=== PATIENT | female | born 1955 | race Caucasian/White ===

== ENCOUNTER 2021-03-13 09:59 | Inpatient (IN) | payer BC, MEDICARE ==
[~2021-03-13] VITALS: Ht 312.4 cm; Wt 96.8 kg
[2021-03-13] MEDS ORDERED: iohexol 350MG/ML 100ml bottle IV ONE (10:11)
--- NOTE | 2021-03-13 10:40 | NUR ---
Patient states she has a history of occular migraines.
[2021-03-13 10:50] LABS: BASOPHILS % (AUTO) 0.5 % (0-1); EOSINOPHILS % (AUTO) 0.2 % (0-6); HEMATOCRIT 34.9 % (35.0-45.0); HEMOGLOBIN 11.9 g/dl (12.0-16.0); LYMPHOCYTES # (AUTO) 0.5 X10'3 (1.1-4.8); LYMPHOCYTES % (AUTO) 4.6 % (21-51); MEAN CORPUSCULAR HEMOGLOBIN 30.8 PG (27.0-31.0); MEAN CORPUSCULAR VOLUME 90.6 FL (78-98); MEAN PLATELET VOLUME 6.6 FL (7.4-10.4); MONOCYTES # (AUTO) 0.8 X10'3 (0-0.9); NEUTROPHILS % (AUTO) 86.7 % (42-75); PLATELET COUNT 201 X10'3 (140-440); RED BLOOD COUNT 3.85 X10'6 (4.20-5.60); RED CELL DISTRIBUTION WIDTH 14.7 % (11.5-14.5); WHITE BLOOD COUNT 10.4 X10'3 (4.5-11.0)
[2021-03-13 10:59] LABS: APTT 24 SECONDS (22-32)
[2021-03-13 11:04] LABS: ALANINE AMINOTRANSFERASE 22 U/L (12-78); ALBUMIN/GLOBULIN RATIO 0.9 (1.1-1.5); ALKALINE PHOSPHATASE 59 IU/L (46-116); ANION GAP 12 (8-16); ASPARTATE AMINO TRANSFERASE 18 U/L (10-37); BILIRUBIN,TOTAL 0.4 MG/DL (0.1-1.0); BLOOD UREA NITROGEN 12 MG/DL (7-18); BUN/CREATININE RATIO 16.7 (6.6-38.0); CALCIUM 8.9 MG/DL (8.5-10.1); CHLORIDE 99 MMOL/L (99-107); CREATININE 0.72 MG/DL (0.40-0.90); GLUCOSE 125 MG/DL (70-104); POTASSIUM 3.1 MMOL/L (3.5-5.1); SODIUM 138 MMOL/L (135-145); TOTAL CARBON DIOXIDE 27.3 MMOL/L (24-32); TOTAL PROTEIN 6.5 G/DL (6.4-8.2); eGFR 81 ML/MIN
[2021-03-13] MEDS ORDERED: aspirin 325mg tablet PO ONE (11:30)
[2021-03-13 12:21] LABS: PHOSPHORUS 3.5 MG/DL (2.3-4.5)
--- NOTE | 2021-03-13 16:00 | NUR ---
Patient assisted to bedside commode.
[2021-03-13] MEDS ORDERED: FERR325T7 PO (16:01)
[2021-03-13] MEDS ORDERED: LOSA100T57 PO (16:01)
[2021-03-13] MEDS ORDERED: ROSU20TA31 PO (16:01)
[2021-03-13] MEDS ORDERED: CHLO25TA10 PO (16:02)
[2021-03-13] MEDS ORDERED: CHOL100046 PO (16:02)
[2021-03-13] MEDS ORDERED: UBID30CA11 PO (16:02)
[2021-03-13] MEDS ORDERED: ASCO500C17 PO (16:02)
[2021-03-13] MEDS ORDERED: ASPI-611 PO (16:02)
[2021-03-13] MEDS: normal saline 1000ml 1,000 ML IV SCH (16:50)
[2021-03-13] MEDS ORDERED: ondansetron/PF 4mg/2ml inj IV PRN (16:50)
[2021-03-13] MEDS ORDERED: acetaminophen 325mg tablet PO PRN ×2 (16:50)
[2021-03-13] MEDS ORDERED: magnesium 2GM in 50ml NS 50 ML IV PRN (16:50)
[2021-03-13] MEDS ORDERED: magnesium 4gm in 100ml NS 100 ML IV PRN (16:50)
[2021-03-13] MEDS ORDERED: nitroGLYCERIN 0.4mg SUBLingual tab SL PRN (16:50)
[2021-03-13] MEDS ORDERED: mag hydrox/Alum hydrox/simeth 30ml oral suspension PO PRN (16:50)
[2021-03-13] MEDS ORDERED: metoprolol tartrate 1mg/ml inj IV PRN (16:50)
[2021-03-13] MEDS ORDERED: potassium Cl 20 mEq SR tablet PO PRN (16:50)
[2021-03-13] MEDS ORDERED: aminophylline 250mg/10ml inj. IV PRN (16:50)
[2021-03-13] MEDS ORDERED: potassium CL 10mEq/100ml bag 100 ML IV PRN (16:50)
[2021-03-13] MEDS ORDERED: regadenoson 0.4mg/5ml syringe IV PRN (16:50)
[2021-03-13] MEDS ORDERED: PERFLUTREN PROTEIN-A MICROSPHR (Optison) 0.22 MG/ML 3ML VIAL IV ONE (16:50)
[2021-03-13] MEDS ORDERED: magnesium Cl slow-release 64mg tablet PO PRN (16:50)
[2021-03-13] MEDS ORDERED: heparin, porcine 5000 units/ml vial SQ SCH (20:00)
[2021-03-13] MEDS ORDERED: K and/or MAG REPLACEMENT MC SCH (20:00)
[2021-03-13] MEDS: potassium Cl 20 mEq SR tablet PO PRN (21:50)
--- NOTE | 2021-03-14 00:05 | NUR ---
Received report from ADONAY Joyner for patient going to room 3014A.
--- NOTE | 2021-03-14 00:20 | NUR ---
The patient, CHERYL GREEN, 65 y/o, F admitted by OLINDA VELAZQUEZ MD, was given written information regarding hospital policies, unit procedures and contact persons. See Admission information. V/S: B/P 138/58, 02 98% room air, R 16, HR 88, T 99.6. Denies any pain or discomfort at this time. Skin assessment completed. Call light within reach. Will continue to monitor.
[2021-03-14] MEDS: potassium Cl 20 mEq SR tablet PO PRN ×3 (01:53→11:53)
[2021-03-14 02:00] VITALS: BP 137/78
--- NOTE | 2021-03-14 02:45 | NUR ---
New order received from Dr Chadwick due to Troponin 984.
[2021-03-14] MEDS ORDERED: heparin 10,000 units/1 ML INJ IV ONE (02:55)
[2021-03-14] MEDS ORDERED: heparin 10,000 units/1 ML INJ IV PRN (02:55)
[2021-03-14] MEDS: heparin 25,000 UNIT/250ml bag 250 ML IV SCH ×2 (03:23→03:55)
--- NOTE | 2021-03-14 05:23 | NUR ---
Patient c/o feeling warm, flushed and nausea. Red blood emesis noted through mouth and nose. Heparin drip was stop. Called Dr Chadwick and new order was received to stop Heparin and start Protonix. Zofran was given via IV, tolerated well..
[2021-03-14] MEDS: pantoprazole 40MG/NS 100ML BAG 100 ML IV SCH ×3 (05:55→16:00)
[2021-03-14 06:09] LABS: BASOPHILS # (AUTO) 0.1 X10'3 (0-0.2); BASOPHILS % (AUTO) 0.7 % (0-1); EOSINOPHILS # (AUTO) 0.2 X10'3 (0-0.9); EOSINOPHILS % (AUTO) 3.1 % (0-6); HEMOGLOBIN 12.4 g/dl (12.0-16.0); LYMPHOCYTES % (AUTO) 12.4 % (21-51); MEAN CORPUSCULAR HEMOGLOBIN 30.8 PG (27.0-31.0); MEAN CORPUSCULAR HGB CONC 33.6 g/dL (33.0-36.5); MEAN CORPUSCULAR VOLUME 91.8 FL (78-98); MONOCYTES # (AUTO) 0.9 X10'3 (0-0.9); MONOCYTES % (AUTO) 10.9 % (2-12); NEUTROPHILS # (AUTO) 5.8 X10'3 (1.8-7.7); NEUTROPHILS % (AUTO) 72.9 % (42-75); PLATELET COUNT 209 X10'3 (140-440); RED BLOOD COUNT 4.03 X10'6 (4.20-5.60); RED CELL DISTRIBUTION WIDTH 14.8 % (11.5-14.5); WHITE BLOOD COUNT 7.9 X10'3 (4.5-11.0)
[2021-03-14 06:20] LABS: ALANINE AMINOTRANSFERASE 20 U/L (12-78); ALBUMIN 3.2 G/DL (3.4-5.0); ALKALINE PHOSPHATASE 58 IU/L (46-116); ANION GAP 9 (8-16); ASPARTATE AMINO TRANSFERASE 20 U/L (10-37); BILIRUBIN,TOTAL 0.5 MG/DL (0.1-1.0); BLOOD UREA NITROGEN 12 MG/DL (7-18); CALCIUM 9.3 MG/DL (8.5-10.1); CHLORIDE 101 MMOL/L (99-107); GLUCOSE 101 MG/DL (70-104); POTASSIUM 3.4 MMOL/L (3.5-5.1); SODIUM 140 MMOL/L (135-145); TOTAL CARBON DIOXIDE 30.3 MMOL/L (24-32); TOTAL PROTEIN 6.5 G/DL (6.4-8.2); eGFR > 90 ML/MIN
--- NOTE | 2021-03-14 06:49 | NUR ---
Problems reprioritized. Patient report given, questions answered & plan of care reviewed with ADONAY Fan.
[2021-03-14] MEDS ORDERED: aspirin 81mg, enteric-coated 1 TAB TABLET.DR PO SCH (08:00)
[2021-03-14] MEDS: normal saline 1000ml 1,000 ML IV SCH (10:08)
[2021-03-14] MEDS ORDERED: PANT40TA54 PO (15:23)
[2021-03-14 15:44] LABS: BASOPHILS % (AUTO) 0.5 % (0-1); EOSINOPHILS # (AUTO) 0.1 X10'3 (0-0.9); EOSINOPHILS % (AUTO) 1.5 % (0-6); HEMATOCRIT 34.9 % (35.0-45.0); LYMPHOCYTES # (AUTO) 1.2 X10'3 (1.1-4.8); LYMPHOCYTES % (AUTO) 15.3 % (21-51); MEAN CORPUSCULAR HGB CONC 34.4 g/dL (33.0-36.5); MEAN CORPUSCULAR VOLUME 90.2 FL (78-98); MEAN PLATELET VOLUME 6.3 FL (7.4-10.4); MONOCYTES # (AUTO) 0.9 X10'3 (0-0.9); MONOCYTES % (AUTO) 11.3 % (2-12); NEUTROPHILS # (AUTO) 5.4 X10'3 (1.8-7.7); NEUTROPHILS % (AUTO) 71.4 % (42-75); PLATELET COUNT 194 X10'3 (140-440); RED BLOOD COUNT 3.87 X10'6 (4.20-5.60); RED CELL DISTRIBUTION WIDTH 14.6 % (11.5-14.5); WHITE BLOOD COUNT 7.6 X10'3 (4.5-11.0)
[2021-03-14] MEDS ORDERED: losartan 50mg tablet PO SCH (21:00)
[2021-03-14] MEDS ORDERED: atorvastatin 20mg tablet PO SCH (21:00)
[2021-03-15] MEDS ORDERED: non-formulary drug (Aspirin (Aspir 81) 1 TAB) PO SCH (08:00)
[2021-03-15] MEDS ORDERED: chlorthalidone 25mg tablet PO SCH (08:00)
== END 2021-03-14 17:51 | disposition home or self-care (01) | DRG 282 ==
LOC: ER 09:59 → ED HOLD 16:59 → EDBEDREQ 21:50 → PCU 3S 03-14 00:25
PROVIDERS: ADMIT Internal Medicine; ATTEND Internal Medicine
PROC: B3251ZZ Computerized Tomography (CT Scan) of Bilateral Common Carotid Arteries using Low Osmolar Contrast (ICD-10-PCS; principal; 2021-03-13)
PROC: B32G1ZZ Computerized Tomography (CT Scan) of Bilateral Vertebral Arteries using Low Osmolar Contrast (ICD-10-PCS; 2021-03-13)
PROC: B32R1ZZ Computerized Tomography (CT Scan) of Intracranial Arteries using Low Osmolar Contrast (ICD-10-PCS; 2021-03-13)
PROC: B3281ZZ Computerized Tomography (CT Scan) of Bilateral Internal Carotid Arteries using Low Osmolar Contrast (ICD-10-PCS; 2021-03-13)
DX: I35.0 Nonrheumatic aortic (valve) stenosis (principal); I21.4 Non-ST elevation (NSTEMI) myocardial infarction; D64.9 Anemia, unspecified; I10 Essential (primary) hypertension; Z20.822 Contact with and (suspected) exposure to COVID-19; G43.109 Migraine with aura, not intractable, without status migrainosus; E04.1 Nontoxic single thyroid nodule; E21.4 Other specified disorders of parathyroid gland; Z86.73 Personal history of transient ischemic attack (TIA), and cerebral infarction without residual deficits; Z87.891 Personal history of nicotine dependence; Z88.8 Allergy status to other drugs, medicaments and biological substances; Z88.5 Allergy status to narcotic agent; Z79.899 Other long term (current) drug therapy; Z79.82 Long term (current) use of aspirin
CPT/HCPCS: 36415; 70450; 70496; 70498; 71045; 80053; 82330; 83605; 83970; 84100; 84439; 84443; 84484; 85025; 85610; 85730; 87040; 87081; 87635; 93005; 93306; 99285; C9113; C9803; G0378; J1644; J2405; J7030; Q9967

== ENCOUNTER 2021-05-07 12:59 | Day surgery (SDC) | payer BC, MEDICARE ==
[2021-04-12 11:45] LABS: BASOPHILS % (AUTO) 0.7 % (0-1); EOSINOPHILS # (AUTO) 0.2 X10'3 (0-0.9); EOSINOPHILS % (AUTO) 2.6 % (0-6); HEMATOCRIT 39.1 % (35.0-45.0); LYMPHOCYTES % (AUTO) 14.3 % (21-51); MEAN CORPUSCULAR HEMOGLOBIN 30.4 PG (27.0-31.0); MEAN CORPUSCULAR HGB CONC 33.3 g/dL (33.0-36.5); MEAN CORPUSCULAR VOLUME 91.3 FL (78-98); MEAN PLATELET VOLUME 6.9 FL (7.4-10.4); MONOCYTES # (AUTO) 0.7 X10'3 (0-0.9); MONOCYTES % (AUTO) 10.2 % (2-12); NEUTROPHILS # (AUTO) 5.1 X10'3 (1.8-7.7); NEUTROPHILS % (AUTO) 72.2 % (42-75); PLATELET COUNT 208 X10'3 (140-440); RED BLOOD COUNT 4.28 X10'6 (4.20-5.60); RED CELL DISTRIBUTION WIDTH 14.2 % (11.5-14.5); WHITE BLOOD COUNT 7.1 X10'3 (4.5-11.0)
[2021-04-12 11:58] LABS: APTT 26 SECONDS (22-32)
[2021-04-12 12:10] LABS: ALBUMIN 3.4 G/DL (3.4-5.0); ANION GAP 10 (8-16); BLOOD UREA NITROGEN 13 MG/DL (7-18); BUN/CREATININE RATIO 15.7 (6.6-38.0); CHLORIDE 97 MMOL/L (99-107); CREATININE 0.83 MG/DL (0.40-0.90); GLUCOSE 127 MG/DL (70-104); POTASSIUM 3.4 MMOL/L (3.5-5.1); SODIUM 134 MMOL/L (135-145); TOTAL CARBON DIOXIDE 26.9 MMOL/L (24-32); eGFR 69 ML/MIN
[2021-05-02 11:35] LABS: BASOPHILS # (AUTO) 0.1 X10'3 (0-0.2); BASOPHILS % (AUTO) 0.8 % (0-1); EOSINOPHILS # (AUTO) 0.2 X10'3 (0-0.9); EOSINOPHILS % (AUTO) 2.2 % (0-6); HEMATOCRIT 39.8 % (35.0-45.0); HEMOGLOBIN 13.5 g/dl (12.0-16.0); LYMPHOCYTES # (AUTO) 0.9 X10'3 (1.1-4.8); LYMPHOCYTES % (AUTO) 12.2 % (21-51); MEAN CORPUSCULAR HEMOGLOBIN 30.7 PG (27.0-31.0); MEAN CORPUSCULAR HGB CONC 33.9 g/dL (33.0-36.5); MEAN CORPUSCULAR VOLUME 90.6 FL (78-98); MEAN PLATELET VOLUME 6.8 FL (7.4-10.4); MONOCYTES # (AUTO) 0.9 X10'3 (0-0.9); MONOCYTES % (AUTO) 12.3 % (2-12); NEUTROPHILS # (AUTO) 5.4 X10'3 (1.8-7.7); NEUTROPHILS % (AUTO) 72.5 % (42-75); PLATELET COUNT 219 X10'3 (140-440); RED BLOOD COUNT 4.39 X10'6 (4.20-5.60); RED CELL DISTRIBUTION WIDTH 14.3 % (11.5-14.5); WHITE BLOOD COUNT 7.4 X10'3 (4.5-11.0)
[2021-05-02 11:49] LABS: APTT 26 SECONDS (22-32)
[2021-05-02 11:55] LABS: ALBUMIN 3.6 G/DL (3.4-5.0); ANION GAP 11 (8-16); BLOOD UREA NITROGEN 14 MG/DL (7-18); BUN/CREATININE RATIO 17.5 (6.6-38.0); CALCIUM 9.8 MG/DL (8.5-10.1); CHLORIDE 98 MMOL/L (99-107); GLUCOSE 118 MG/DL (70-104); SODIUM 138 MMOL/L (135-145); TOTAL CARBON DIOXIDE 28.7 MMOL/L (24-32); eGFR 72 ML/MIN
[2021-05-02 12:23] LABS: POTASSIUM 2.8 MMOL/L (3.5-5.1)
[2021-05-06 11:01] LABS: ALANINE AMINOTRANSFERASE 27 U/L (12-78); ALBUMIN 3.4 G/DL (3.4-5.0); ALBUMIN/GLOBULIN RATIO 0.9 (1.1-1.5); ALKALINE PHOSPHATASE 59 IU/L (46-116); ANION GAP 11 (8-16); ASPARTATE AMINO TRANSFERASE 23 U/L (10-37); BILIRUBIN,TOTAL 0.3 MG/DL (0.1-1.0); BLOOD UREA NITROGEN 16 MG/DL (7-18); BUN/CREATININE RATIO 20.8 (6.6-38.0); CALCIUM 9.7 MG/DL (8.5-10.1); CHLORIDE 99 MMOL/L (99-107); CREATININE 0.77 MG/DL (0.40-0.90); GLUCOSE 111 MG/DL (70-104); POTASSIUM 3.2 MMOL/L (3.5-5.1); SODIUM 137 MMOL/L (135-145); TOTAL PROTEIN 7.3 G/DL (6.4-8.2); eGFR 75 ML/MIN
[2021-05-07] VITALS (10 sets, daily range): BP systolic 99–127; BP diastolic 49–72
[~2021-05-07] VITALS: Ht 160 cm; Wt 92.9 kg
[~2021-05-07 12:59] MED LIST: ASCO500C17 PO; ASPI-611 PO; CHLO25TA10 PO; CHOL100046 PO; FERR325T7 PO; LOSA100T57 PO; PANT40TA54 PO; ROSU20TA31 PO; UBID30CA11 PO
[2021-05-07] MEDS ORDERED: LORazepam 0.5 MG tablet PO PRN (13:15)
[2021-05-07] MEDS ORDERED: normal saline 1,000 ML IV SCH (13:15)
[2021-05-07] MEDS ORDERED: diphenhydrAMINE 25mg capsule PO PRN (13:15)
[2021-05-07] MEDS ORDERED: POTA-207 PO (13:31)
[2021-05-07] MEDS ORDERED: CALC-627 PO (13:31)
[2021-05-07] MEDS ORDERED: midazolam 1 mg/ML 2ml injection ONE (13:57)
[2021-05-07] MEDS ORDERED: nitroGLYCERIN-Tridil 50MG/D5W 250 ML IV ONE (13:57)
[2021-05-07] MEDS ORDERED: verapamil 2.5 mg/ml inj IV ONE (13:57)
[2021-05-07] MEDS ORDERED: heparin 1,000unit/ml 10ml vial 10 ML ONE (13:58)
[2021-05-07] MEDS ORDERED: LIDOcaine 1% (10mg/ml)w/preservative inj. 20ml MDV ONE (13:58)
[2021-05-07] MEDS ORDERED: iohexol 350MG/ML 100ml bottle IV ONE (13:58)
[2021-05-07] MEDS ORDERED: fentaNYL/PF 50MCG/1 ML 2ML syringe ONE (13:58)
--- NOTE | 2021-05-07 14:45 | NUR ---
Pt to Is Project Manager, Report given to Meghann URIAS.
[2021-05-07 15:34] LABS: ISTAT HGB ART 12.2 g/dl (12.0-16.0); ISTAT Hct ART 36 %PCV (35-48); ISTAT O2 SATURATION ARTERIAL 95 % (95-98); ISTAT SOURCE ART
--- NOTE | 2021-05-07 15:40 | NUR ---
Pt returned from bed laborer. Vasc band on Right radial in place. Pulse ox on right thumb good waveform displayed. VSS, pt denies pain.
--- NOTE | 2021-05-07 16:00 | NUR ---
Pt sitting up in bed drinking water and eating cheeseburger without problems. Vasc band to right radial in place no bleeding, bruising or hematoma noted.
--- NOTE | 2021-05-07 18:00 | NUR ---
Vasc band completely deflated, removed and dressing applied. No bleeding, bruising or hematoma noted. Pt up and amb in hallway, gait steady. Returned to room, pt void in toilet. Pt able to dress self steady on feet.
--- NOTE | 2021-05-07 18:30 | NUR ---
DC pt to home with Sister. Transferred to private car via WC, pt able to transfer self to car. Gave sister update about radial site care and instructed her that written instructions in pt purse.
[2021-05-08 07:35] LABS: ISTAT Hct MIX 35 %PCV (35-48); ISTAT O2 SATURATION MIX VENOUS 77 % (60-80); ISTAT SOURCE BLNK
== END 2021-05-07 18:30 | disposition home or self-care (01) ==
LOC: SSTAY O 12:59
PROVIDERS: ATTEND Internal Medicine Interventional Cardiology
DX: I35.0 Nonrheumatic aortic (valve) stenosis (principal); I10 Essential (primary) hypertension; E78.49 Other hyperlipidemia; Z88.8 Allergy status to other drugs, medicaments and biological substances; Z88.5 Allergy status to narcotic agent; Z79.01 Long term (current) use of anticoagulants; Z79.899 Other long term (current) drug therapy; Z79.82 Long term (current) use of aspirin
CPT/HCPCS: 36415; 80048; 80053; 82803; 85014; 85025; 85610; 85730; 93005; 93456; 99152; 99153; C1751; C1769; C1894; J1644; J2250; J3010; J3490; J7030; Q0163; Q9967; A4620; A5120; A6258

== ENCOUNTER 2021-05-29 10:02 | Outpatient (CLI) | payer BC, MEDICARE ==
[~2021-05-29 10:02] MED LIST changes: +CALC-627 PO; -PANT40TA54 PO; +POTA-207 PO
[2021-05-29 10:33] LABS: BASOPHILS # (AUTO) 0.1 X10'3 (0-0.2); BASOPHILS % (AUTO) 0.8 % (0-1); EOSINOPHILS # (AUTO) 0.3 X10'3 (0-0.9); EOSINOPHILS % (AUTO) 4.4 % (0-6); HEMATOCRIT 41.4 % (35.0-45.0); HEMOGLOBIN 13.9 g/dl (12.0-16.0); LYMPHOCYTES # (AUTO) 1.3 X10'3 (1.1-4.8); LYMPHOCYTES % (AUTO) 18.8 % (21-51); MEAN CORPUSCULAR HEMOGLOBIN 30.8 PG (27.0-31.0); MEAN CORPUSCULAR HGB CONC 33.7 g/dL (33.0-36.5); MEAN CORPUSCULAR VOLUME 91.4 FL (78-98); MEAN PLATELET VOLUME 6.6 FL (7.4-10.4); MONOCYTES # (AUTO) 0.8 X10'3 (0-0.9); MONOCYTES % (AUTO) 12.4 % (2-12); NEUTROPHILS # (AUTO) 4.3 X10'3 (1.8-7.7); NEUTROPHILS % (AUTO) 63.6 % (42-75); PLATELET COUNT 232 X10'3 (140-440); RED BLOOD COUNT 4.53 X10'6 (4.20-5.60); RED CELL DISTRIBUTION WIDTH 13.6 % (11.5-14.5); WHITE BLOOD COUNT 6.8 X10'3 (4.5-11.0)
[2021-05-29 11:03] LABS: ALANINE AMINOTRANSFERASE 33 U/L (12-78); ALBUMIN 3.8 G/DL (3.4-5.0); ALKALINE PHOSPHATASE 63 IU/L (46-116); ANION GAP 9 (8-16); ASPARTATE AMINO TRANSFERASE 28 U/L (10-37); BILIRUBIN,TOTAL 0.4 MG/DL (0.1-1.0); BLOOD UREA NITROGEN 13 MG/DL (7-18); BUN/CREATININE RATIO 17.3 (6.6-38.0); CALCIUM 9.6 MG/DL (8.5-10.1); CHLORIDE 99 MMOL/L (99-107); CREATININE 0.75 MG/DL (0.40-0.90); GLUCOSE 105 MG/DL (70-104); SODIUM 138 MMOL/L (135-145); TOTAL CARBON DIOXIDE 29.6 MMOL/L (24-32); TOTAL PROTEIN 7.8 G/DL (6.4-8.2); eGFR 77 ML/MIN
[2021-05-29 11:11] LABS: POTASSIUM 2.9 MMOL/L (3.5-5.1)
[2021-05-29 11:42] LABS: APTT 26 SECONDS (22-32)
== END 2021-05-29 23:59 | disposition home or self-care (01) ==
LOC: RAD 10:02
PROVIDERS: ATTEND Internal Medicine Cardiovascular Disease
DX: I70.0 Atherosclerosis of aorta (principal); I36.1 Nonrheumatic tricuspid (valve) insufficiency; M19.019 Primary osteoarthritis, unspecified shoulder; M47.819 Spondylosis without myelopathy or radiculopathy, site unspecified; I35.0 Nonrheumatic aortic (valve) stenosis; R06.02 Shortness of breath; I65.29 Occlusion and stenosis of unspecified carotid artery; Z20.822 Contact with and (suspected) exposure to COVID-19
CPT/HCPCS: 36415; 71046; 80053; 85025; 85610; 85730; 87635; 94010; 94727; 94729; C9803; 71275; 74174; Q9967

== ENCOUNTER 2021-07-04 06:19 | Inpatient (IN) | payer BC, MEDICARE ==
[2021-06-27 12:50] LABS: CLARITY,URINE CLEAR (Clear); COLOR,URINE YELLOW (Yellow); GLUCOSE, URINE NEGATIVE (Neg); KETONES,URINE NEGATIVE (Neg); LEUKOCYTE ESTERASE ,URINE NEGATIVE (Neg); NITRITES, URINE NEGATIVE (Neg); OCCULT BLOOD,URINE NEGATIVE (Neg); PROTEIN,URINE NEGATIVE (Neg); UROBILINOGEN,URINE 0.2 E.U/dL (0.2-1.0)
[2021-06-27 12:51] LABS: UA COLLECTION TYPE CLN CATCH MIDSTREAM
[2021-06-27 12:54] LABS: BASOPHILS # (AUTO) 0.1 X10'3 (0-0.2); BASOPHILS % (AUTO) 1.2 % (0-1); EOSINOPHILS # (AUTO) 0.3 X10'3 (0-0.9); EOSINOPHILS % (AUTO) 2.7 % (0-6); LYMPHOCYTES # (AUTO) 1.1 X10'3 (1.1-4.8); LYMPHOCYTES % (AUTO) 11.2 % (21-51); MEAN CORPUSCULAR HEMOGLOBIN 30.4 PG (27.0-31.0); MEAN CORPUSCULAR HGB CONC 33.5 g/dL (33.0-36.5); MEAN CORPUSCULAR VOLUME 90.7 FL (78-98); MEAN PLATELET VOLUME 6.9 FL (7.4-10.4); MONOCYTES % (AUTO) 9.8 % (2-12); NEUTROPHILS # (AUTO) 7.6 X10'3 (1.8-7.7); NEUTROPHILS % (AUTO) 75.1 % (42-75); PRE OP HEMATOCRIT 37.1 % (35.0-45.0); PRE OP HEMOGLOBIN 12.4 g/dL (12.0-16.0); PRE OP PLATELET COUNT 272 X10'3 (140-440); RED BLOOD COUNT 4.09 X10'6 (4.20-5.60); RED CELL DISTRIBUTION WIDTH 13.3 % (11.5-14.5)
[2021-06-27 13:04] LABS: PRE OP PROTIME 10.3 SECONDS (9.0-12.0)
[2021-06-27 13:05] LABS: ALBUMIN 3.6 G/DL (3.4-5.0); ALBUMIN/GLOBULIN RATIO 0.9 (1.1-1.5); ALKALINE PHOSPHATASE 69 IU/L (46-116); BLOOD UREA NITROGEN 16 MG/DL (7-18); BUN/CREATININE RATIO 20.8 (6.6-38.0); CALCIUM 9.3 MG/DL (8.5-10.1); CHLORIDE 98 MMOL/L (99-107); CREATININE 0.77 MG/DL (0.40-0.90); PRE OP ALT 25 U/L (30-65); PRE OP ANION GAP 8 (8-16); PRE OP AST 21 U/L (10-37); PRE OP BILIRUB, TOTAL 0.4 MG/DL (0.0-1.0); PRE OP GLUCOSE 92 MG/DL (70-104); PRE OP SODIUM 135 MMOL/L (135-145); TOTAL CARBON DIOXIDE 28.8 MMOL/L (24-32); TOTAL PROTEIN 7.5 G/DL (6.4-8.2); eGFR 75 ML/MIN
[2021-06-27 13:08] LABS: PRE OP POTASSIUM 3.1 MMOL/L (3.4-5.1)
[2021-07-01 10:51] LABS: APTT 25 SECONDS (22-32)
[2021-07-01 10:57] LABS: ALANINE AMINOTRANSFERASE 22 U/L (12-78); ALBUMIN 3.5 G/DL (3.4-5.0); ALBUMIN/GLOBULIN RATIO 0.9 (1.1-1.5); ALKALINE PHOSPHATASE 65 IU/L (46-116); ANION GAP 8 (8-16); ASPARTATE AMINO TRANSFERASE 23 U/L (10-37); BILIRUBIN,TOTAL 0.5 MG/DL (0.1-1.0); BLOOD UREA NITROGEN 15 MG/DL (7-18); BUN/CREATININE RATIO 21.4 (6.6-38.0); CALCIUM 9.4 MG/DL (8.5-10.1); CHLORIDE 96 MMOL/L (99-107); GLUCOSE 102 MG/DL (70-104); POTASSIUM 3.6 MMOL/L (3.5-5.1); SODIUM 133 MMOL/L (135-145); TOTAL CARBON DIOXIDE 29.2 MMOL/L (24-32); TOTAL PROTEIN 7.3 G/DL (6.4-8.2); eGFR 83 ML/MIN
[~2021-07-04] VITALS: Ht 160 cm; Wt 92.2 kg
[2021-07-04] VITALS (27 sets, daily range): BP systolic 85–128; BP diastolic 53–76
[~2021-07-04 06:19] MED LIST changes: +aspirin 325mg tablet PO ONE; +cefazolin/dext.iso 2gm/100ml 100 ML IV ONE; +famotidine 20mg tablet PO ONE; +nitroPRUSSIDE (NIPRIDE) (200MCG/ML) 100ML Drip IV SCH; +ondansetron/PF 4mg/2ml inj IV PRN; +phenylephrine inj 50 MG in normal saline 250ml IV solN IV SCH; +ringers solution, lacted 1,000 ML IV SCH
[2021-07-04] MEDS ORDERED: protamine sulfate 10mg/ml inj. ONE (06:52)
[2021-07-04 08:10] LABS: ALBUMIN 3.5 G/DL (3.4-5.0); ALBUMIN/GLOBULIN RATIO 0.9 (1.1-1.5); ALKALINE PHOSPHATASE 56 IU/L (46-116); BLOOD UREA NITROGEN 16 MG/DL (7-18); BUN/CREATININE RATIO 20.3 (6.6-38.0); CALCIUM 9.4 MG/DL (8.5-10.1); CHLORIDE 101 MMOL/L (99-107); CREATININE 0.79 MG/DL (0.40-0.90); PRE OP ALT 27 U/L (30-65); PRE OP ANION GAP 10 (8-16); PRE OP AST 27 U/L (10-37); PRE OP BILIRUB, TOTAL 0.6 MG/DL (0.0-1.0); PRE OP GLUCOSE 105 MG/DL (70-104); PRE OP POTASSIUM 3.4 MMOL/L (3.4-5.1); PRE OP SODIUM 137 MMOL/L (135-145); TOTAL CARBON DIOXIDE 26.2 MMOL/L (24-32); TOTAL PROTEIN 7.2 G/DL (6.4-8.2); eGFR 73 ML/MIN
[2021-07-04] MEDS ORDERED: heparin 1,000 UNITS/NS 500ml 500 ML ONE ×2 (09:09→14:11)
[2021-07-04] MEDS ORDERED: LIDOcaine 1% 30ml preserv. free vial ONE ×2 (09:09→14:11)
[2021-07-04] MEDS ORDERED: midazolam 1 mg/ML 2ml injection ONE ×2 (09:10→14:11)
[2021-07-04] MEDS ORDERED: fentaNYL/PF 50MCG/1 ML 2ML syringe ONE ×2 (09:12→14:11)
[2021-07-04] MEDS ORDERED: MIDAZolam 1mg/ml 10ml vial ONE (09:25)
[2021-07-04] MEDS ORDERED: propofol inj 20 ML IV ONE ×3 (09:46)
[2021-07-04] MEDS ORDERED: heparin 1,000unit/ml 10ml vial 10 ML ONE ×2 (09:47→14:11)
[2021-07-04] MEDS ORDERED: meperidine/PF 25mg/ml syringe IV PRN ×3 (10:35)
[2021-07-04] MEDS ORDERED: acetaminophen 1,000mg/100ml IV 100 ML IV PRN (10:35)
[2021-07-04] MEDS ORDERED: ringers solution, lacted 1,000 ML IV SCH (10:35)
[2021-07-04] MEDS ORDERED: morphine 2 MG/ML inj. syringe IV PRN (10:35)
[2021-07-04] MEDS ORDERED: labetalol 20mg/4ml (5mg/ml) syringe IV PRN ×2 (10:35→10:40)
[2021-07-04] MEDS ORDERED: ondansetron/PF 4mg/2ml inj IV PRN ×2 (10:35→10:40)
[2021-07-04] MEDS ORDERED: hydrALAZINE 20mg/ml inj. IV PRN ×2 (10:35→10:40)
[2021-07-04] MEDS ORDERED: proCHLORperazine 10 MG/2 ml inj IV PRN ×2 (10:35→10:40)
[2021-07-04] MEDS ORDERED: ALPRAZolam 0.25mg tablet PO PRN (10:40)
[2021-07-04] MEDS ORDERED: acetaminophen 325mg tablet PO PRN (10:40)
[2021-07-04] MEDS ORDERED: pantoprazole 40mg Tablet.DR PO PRN (10:40)
[2021-07-04] MEDS ORDERED: docusate sod 100mg capsule PO PRN (10:40)
[2021-07-04] MEDS ORDERED: normal saline 1000ml 1,000 ML IV SCH (10:40)
[2021-07-04] MEDS ORDERED: diphenhydrAMINE 25mg capsule PO PRN (10:40)
[2021-07-04] MEDS ORDERED: HYDROcodone/acetaminophen 5mg/325mg tablet PO PRN (10:40)
[2021-07-04] MEDS ORDERED: iohexol 350 MG/ML 50ML vial IV ONE ×3 (11:00→14:42)
[2021-07-04] MEDS ORDERED: iohexol 350MG/ML 100ml bottle IV ONE (11:00)
[2021-07-04] MEDS ORDERED: MAGNESIUM PO SCH (11:25)
[2021-07-04] MEDS ORDERED: ferrous sulfate 325mg tablet PO SCH ×2 (11:25→22:14)
[2021-07-04] MEDS ORDERED: CALCIUM PO SCH (11:25)
--- NOTE | 2021-07-04 11:41 | NUR ---
REPEAT EKG DONE W/ ST DEPRESSION LEAD 2 AND [address] MARTINES, DR BOSE NOTIFIED AND WILL COME TO SEE PATIENT SOON. MORPHINE TO BE GIVEN FOR LEFT ARM PAIN. V/S OTHERWISE STABLE AND IN SR.
[2021-07-04] MEDS: morphine 4 MG/ML inj SYRINge IV PRN ×3 (11:44→14:03)
--- NOTE | 2021-07-04 11:55 | NUR ---
PATIENT STATES JAW PAIN AND SHOULDER PAIN BILATERAL MORPHINE GIVEN AND PAIN IS LESS NOW SHE STATES
--- NOTE | 2021-07-04 12:23 | NUR ---
DR WILLIAM BALDERAS HAS COME TO SEE PATIENT AND REVIEW CHART, AWARE OF PATIENT C/O PAIN WHICH HAS BEEN RESOLVING TO JAW BUT NOT SHOULDERS. AFTER ASSESSING PATIENT CONDITION DR GARCIA STATED NO EXTRA INTERVENTIONS NEEDED AT THIS TIME.
--- NOTE | 2021-07-04 13:02 | NUR ---
DR GARCIA NOTIFIED OF PATIENT RETURN OF JAW AND SHOULDER PAIN AND NOW SOME NEW CHEST PAIN, REPEAT EKG ORDERED TO MONITOR FOR CHANGES
--- NOTE | 2021-07-04 13:08 | NUR ---
DR BALDERAS HERE EVALUATING PATIENT AND EKG, NITRO SL ORDERED
[2021-07-04] MEDS ORDERED: nitroGLYCERIN 0.4mg SUBLingual tab SL PRN ×2 (13:10→20:05)
[2021-07-04] MEDS ORDERED: nitroGLYCERIN 0.4mg SUBLingual tab SL ONE (13:11)
--- NOTE | 2021-07-04 13:13 | NUR ---
NEW EKG DONE AND DR BALDERAS HAS REVIEWED, NITRO GIVEN SL WELL.
--- NOTE | 2021-07-04 14:00 | NUR ---
bilat pedal pulses palpable groin sites show no s/s of complications cdi with mild edema no active drainage observed.
--- NOTE | 2021-07-04 14:03 | NUR ---
CT DONE, DR BOSE HERE AND WILL TAKE PATIENT BACK TO EFFICIENCY MINER BLASTING, PATIENT C/O CHEST JAW AND ARM PAIN AND SOME CHANGES WITH EKG NITRO GIVEN AND MORPHINE.
[2021-07-04] MEDS ORDERED: verapamil 2.5 mg/ml inj IV ONE (14:10)
--- NOTE | 2021-07-04 14:10 | NUR ---
CHAS GTT RESTARTED PER PROTICAL AND 500 BOLUS NS BEING GIVEN PER DR BOSE.
[2021-07-04] MEDS ORDERED: nitroGLYCERIN-Tridil 50MG/D5W 0 ML IV ONE (14:11)
--- NOTE | 2021-07-04 14:16 | NUR ---
PATIENT TAKEN BACK TO CLIENT RELATIONSHIP CONSULTANT
[2021-07-04] MEDS ORDERED: iohexol 300mg/ml 100ml inj. ONE ×2 (14:25→14:57)
[2021-07-04] MEDS ORDERED: ticagrelor 90mg tablet ONE (15:00)
[2021-07-04] MEDS: ceFAZolin 1GM/D5W- ADD-VANTAGE 50 ML IV SCH (18:12)
[2021-07-04] MEDS: sod chloride 0.9% 10ml flush syringe IV SCH (19:14)
--- NOTE | 2021-07-04 19:14 | NUR ---
Problems reprioritized. Patient report given, questions answered & plan of care reviewed with ADONAY TORRES.
[2021-07-04] MEDS: normal saline 1000ml 1,000 ML IV SCH (20:05)
[2021-07-04] MEDS ORDERED: ticagrelor 90mg tablet PO SCH (20:10)
[2021-07-04] MEDS ORDERED: atorvastatin 20mg tablet PO SCH (21:00)
[2021-07-04] MEDS ORDERED: losartan 50mg tablet PO SCH (21:00)
[2021-07-04] MEDS: vancomycin/NS 1 GM ADD-VANTAGE 250 ML IV SCH (22:15)
[2021-07-04] MEDS: ticagrelor 90mg tablet PO SCH (22:34)
[2021-07-05] MEDS: ceFAZolin 1GM/D5W- ADD-VANTAGE 50 ML IV SCH ×2 (00:34→08:25)
[2021-07-05] MEDS: sod chloride 0.9% 10ml flush syringe IV SCH ×2 (00:34→08:42)
[2021-07-05 00:37] VITALS: BP 95/55
[2021-07-05 02:00] VITALS: BP 103/54
[2021-07-05] MEDS: normal saline 1000ml 1,000 ML IV SCH (02:18)
[2021-07-05 04:26] VITALS: BP 98/53
[2021-07-05 06:00] VITALS: BP 93/56
[2021-07-05 06:36] LABS: BASOPHILS % (AUTO) 0.3 % (0-1); EOSINOPHILS # (AUTO) 0.1 X10'3 (0-0.9); EOSINOPHILS % (AUTO) 1.2 % (0-6); HEMOGLOBIN 9.5 g/dl (12.0-16.0); LYMPHOCYTES # (AUTO) 0.6 X10'3 (1.1-4.8); LYMPHOCYTES % (AUTO) 5.4 % (21-51); MEAN CORPUSCULAR HEMOGLOBIN 30.7 PG (27.0-31.0); MEAN CORPUSCULAR HGB CONC 33.9 g/dL (33.0-36.5); MEAN CORPUSCULAR VOLUME 90.6 FL (78-98); MEAN PLATELET VOLUME 6.9 FL (7.4-10.4); MONOCYTES # (AUTO) 1.4 X10'3 (0-0.9); NEUTROPHILS # (AUTO) 9.4 X10'3 (1.8-7.7); NEUTROPHILS % (AUTO) 81.1 % (42-75); PLATELET COUNT 198 X10'3 (140-440); RED BLOOD COUNT 3.09 X10'6 (4.20-5.60); RED CELL DISTRIBUTION WIDTH 13.5 % (11.5-14.5); WHITE BLOOD COUNT 11.5 X10'3 (4.5-11.0)
[2021-07-05 07:01] LABS: ALANINE AMINOTRANSFERASE 26 U/L (12-78); ALBUMIN 2.8 G/DL (3.4-5.0); ALBUMIN/GLOBULIN RATIO 0.9 (1.1-1.5); ALKALINE PHOSPHATASE 44 IU/L (46-116); ANION GAP 9 (8-16); ASPARTATE AMINO TRANSFERASE 159 U/L (10-37); BILIRUBIN,TOTAL 0.5 MG/DL (0.1-1.0); BLOOD UREA NITROGEN 8 MG/DL (7-18); BUN/CREATININE RATIO 11.6 (6.6-38.0); CALCIUM 8.4 MG/DL (8.5-10.1); CHLORIDE 100 MMOL/L (99-107); CREATININE 0.69 MG/DL (0.40-0.90); GLUCOSE 91 MG/DL (70-104); MAGNESIUM 1.6 MG/DL (1.5-2.4); SODIUM 135 MMOL/L (135-145); TOTAL CARBON DIOXIDE 25.9 MMOL/L (24-32); eGFR 85 ML/MIN
[2021-07-05 07:09] LABS: POTASSIUM 2.7 MMOL/L (3.5-5.1)
--- NOTE | 2021-07-05 07:19 | NUR ---
PT SENT PAGER ID: [phone] MESSAGE: [id number], ALEXANDRA CONNELL. CRITICAL LAB, K - 2.6. PT NEEDS ELECTROLYTE REPLACEMENT ORDER. THANK YOU, KATHERINE
[2021-07-05] MEDS ORDERED: magnesium 2GM in 50ml NS 50 ML IV PRN (07:25)
[2021-07-05] MEDS ORDERED: potassium CL 10mEq/100ml bag 100 ML IV PRN (07:25)
[2021-07-05] MEDS ORDERED: magnesium Cl slow-release 64mg tablet PO PRN (07:25)
[2021-07-05] MEDS ORDERED: magnesium 4gm in 100ml NS 100 ML IV PRN (07:25)
[2021-07-05] MEDS ORDERED: POTASSIUM BICARB 20meq eff tab 20 MEQ TABLET.EFF PO PRN (07:25)
[2021-07-05] MEDS ORDERED: TICA90TA PO (07:42)
[2021-07-05] MEDS ORDERED: aspirin 81mg, enteric-coated 1 TAB TABLET.DR PO ONE (08:00)
[2021-07-05] MEDS ORDERED: potassium Cl 20 mEq SR tablet PO SCH (08:00)
[2021-07-05] MEDS ORDERED: chlorthalidone 25mg tablet PO SCH (08:00)
[2021-07-05] MEDS ORDERED: ascorbic acid 500mg tablet PO SCH ×2 (08:00→08:51)
[2021-07-05] MEDS ORDERED: cholecalciferol (vitamin D3) 1,000 unit (25mcg) tablet PO SCH ×2 (08:00→08:51)
[2021-07-05] MEDS ORDERED: non-formulary drug (Ubidecarenone (Coq-10) 30 MG) PO SCH (08:00)
[2021-07-05] MEDS ORDERED: aspirin 325mg tablet PO SCH (08:00)
[2021-07-05] MEDS ORDERED: K and/or MAG REPLACEMENT MC SCH (08:00)
[2021-07-05] MEDS: vancomycin/NS 1 GM ADD-VANTAGE 250 ML IV SCH (08:00)
[2021-07-05] MEDS: POTASSIUM BICARB 20meq eff tab 20 MEQ TABLET.EFF PO PRN ×3 (08:23→15:12)
[2021-07-05] MEDS: ticagrelor 90mg tablet PO SCH (08:29)
[2021-07-05 11:00] VITALS: BP 105/63
[2021-07-05 15:00] VITALS: BP 88/55
--- NOTE | 2021-07-05 18:10 | NUR ---
PT'S K = 3.9. NADJA WAGNER AND MARTI WITH [facility] APPROVED PLANNED DISCHARGE.
--- NOTE | 2021-07-05 18:47 | NUR ---
Problems reprioritized. Patient report given, questions answered & plan of care reviewed with ADONAY TORRES. DISCHARGE INSTRUCTIONS REVIEWED, APPROPRIATE PAPERWORK SIGNED.
--- NOTE | 2021-07-05 19:11 | NUR ---
Pt discharged via wheelchair to lobby to l[facility] Justice. Reshma showed RN pt brilanta medication. Pt ambulatory to car, tolerated well.IV removed. All pt belongings with pt. Previous RN Corie, reviewed pt discharge information. discharge paperwork with pt. Follow ups made, pt aware to call primary. pt and family deny any questions at this time.
== END 2021-07-05 18:50 | disposition home or self-care (01) | DRG 267 ==
LOC: PAS IN 06:19 → PCU 3S 17:08
PROVIDERS: ADMIT Internal Medicine Cardiovascular Disease; ATTEND Internal Medicine Cardiovascular Disease
PROC: 027034Z Dilation of Coronary Artery, One Artery with Drug-eluting Intraluminal Device, Percutaneous Approach (ICD-10-PCS; 2021-07-04)
PROC: B41D1ZZ Fluoroscopy of Aorta and Bilateral Lower Extremity Arteries using Low Osmolar Contrast (ICD-10-PCS; 2021-07-04)
PROC: B32T1ZZ Computerized Tomography (CT Scan) of Left Pulmonary Artery using Low Osmolar Contrast (ICD-10-PCS; 2021-07-04)
PROC: B3201ZZ Computerized Tomography (CT Scan) of Thoracic Aorta using Low Osmolar Contrast (ICD-10-PCS; 2021-07-04)
PROC: B32S1ZZ Computerized Tomography (CT Scan) of Right Pulmonary Artery using Low Osmolar Contrast (ICD-10-PCS; 2021-07-04)
PROC: B241ZZ3 Ultrasonography of Multiple Coronary Arteries, Intravascular (ICD-10-PCS; 2021-07-04)
PROC: 4A023N7 Measurement of Cardiac Sampling and Pressure, Left Heart, Percutaneous Approach (ICD-10-PCS; 2021-07-04)
PROC: B2111ZZ Fluoroscopy of Multiple Coronary Arteries using Low Osmolar Contrast (ICD-10-PCS; 2021-07-04)
PROC: B41F1ZZ Fluoroscopy of Right Lower Extremity Arteries using Low Osmolar Contrast (ICD-10-PCS; 2021-07-04)
PROC: X2RF332 Replacement of Aortic Valve using Zooplastic Tissue, Rapid Deployment Technique, Percutaneous Approach, New Technology Group 2 (ICD-10-PCS; principal; 2021-07-04 09:08)
DX: I35.0 Nonrheumatic aortic (valve) stenosis (principal); E78.5 Hyperlipidemia, unspecified; I10 Essential (primary) hypertension; Z79.82 Long term (current) use of aspirin; Z87.891 Personal history of nicotine dependence; Z00.6 Encounter for examination for normal comparison and control in clinical research program; R07.89 Other chest pain
CPT/HCPCS: 33361; 92978; 93308; 93458; 93567; C9600; 36415; 71045; 71046; 71275; 74174; 76937; 80053; 81003; 82948; 83735; 83880; 84132; 85025; 85347; 85610; 85730; 86885; 86900; 86901; 86920; 87081; 93005; 99152; 99153; A4618; A4620; A6258; A6449; C1725; C1751; C1753; C1756; C1760; C1769; C1874; C1894; G0378; J0690; J1644; J2175; J2250; J2270; J2370; J2704; J2720; J3010; J3370; J3490; J7040; J7050; J7120; Q9967

== ENCOUNTER 2021-08-14 12:49 | Emergency (ER) | payer BC, MEDICARE ==
[~2021-08-14] VITALS: Ht 160 cm; Wt 90.9 kg
[~2021-08-14 12:49] MED LIST changes: -CHLO25TA10 PO; -LOSA100T57 PO; +TICA90TA PO; -aspirin 325mg tablet PO ONE; -cefazolin/dext.iso 2gm/100ml 100 ML IV ONE; -famotidine 20mg tablet PO ONE; -nitroPRUSSIDE (NIPRIDE) (200MCG/ML) 100ML Drip IV SCH; -ondansetron/PF 4mg/2ml inj IV PRN; -phenylephrine inj 50 MG in normal saline 250ml IV solN IV SCH; -ringers solution, lacted 1,000 ML IV SCH
[2021-08-14] MEDS ORDERED: normal saline 1000ML IV soln IVB ONE (13:55)
[2021-08-14 14:03] LABS: BASOPHILS # (AUTO) 0.1 X10'3 (0-0.2); BASOPHILS % (AUTO) 0.8 % (0-1); EOSINOPHILS % (AUTO) 0.3 % (0-6); HEMOGLOBIN 11.2 g/dl (12.0-16.0); LYMPHOCYTES # (AUTO) 0.5 X10'3 (1.1-4.8); LYMPHOCYTES % (AUTO) 3.3 % (21-51); MEAN CORPUSCULAR HEMOGLOBIN 28.8 PG (27.0-31.0); MEAN CORPUSCULAR HGB CONC 32.9 g/dL (33.0-36.5); MEAN CORPUSCULAR VOLUME 87.8 FL (78-98); MEAN PLATELET VOLUME 7.1 FL (7.4-10.4); MONOCYTES # (AUTO) 0.9 X10'3 (0-0.9); MONOCYTES % (AUTO) 6.4 % (2-12); NEUTROPHILS # (AUTO) 12.9 X10'3 (1.8-7.7); NEUTROPHILS % (AUTO) 89.2 % (42-75); PLATELET COUNT 274 X10'3 (140-440); RED BLOOD COUNT 3.88 X10'6 (4.20-5.60); RED CELL DISTRIBUTION WIDTH 14.3 % (11.5-14.5); WHITE BLOOD COUNT 14.5 X10'3 (4.5-11.0)
[2021-08-14 14:15] LABS: ALANINE AMINOTRANSFERASE 36 U/L (12-78); ALBUMIN 3.4 G/DL (3.4-5.0); ALBUMIN/GLOBULIN RATIO 0.9 (1.1-1.5); ALKALINE PHOSPHATASE 71 IU/L (46-116); ANION GAP 11 (8-16); ASPARTATE AMINO TRANSFERASE 32 U/L (10-37); BILIRUBIN,TOTAL 0.5 MG/DL (0.1-1.0); BLOOD UREA NITROGEN 29 MG/DL (7-18); BUN/CREATININE RATIO 43.3 (6.6-38.0); CALCIUM 9.7 MG/DL (8.5-10.1); CHLORIDE 100 MMOL/L (99-107); CREATININE 0.67 MG/DL (0.40-0.90); GLUCOSE 99 MG/DL (70-104); POTASSIUM 4.1 MMOL/L (3.5-5.1); SODIUM 133 MMOL/L (135-145); TOTAL CARBON DIOXIDE 22.2 MMOL/L (24-32); eGFR 88 ML/MIN
[2021-08-14 14:21] VITALS: BP 120/75
== END 2021-08-14 15:12 | disposition home or self-care (01) ==
LOC: ER 12:49
DX: R04.0 Epistaxis (principal); I11.9 Hypertensive heart disease without heart failure; Z88.1 Allergy status to other antibiotic agents; Z88.5 Allergy status to narcotic agent; Z88.8 Allergy status to other drugs, medicaments and biological substances; Z79.899 Other long term (current) drug therapy; Z79.82 Long term (current) use of aspirin
CPT/HCPCS: 30901; 36415; 80053; 85025; 99284; J7030; 96360

== ENCOUNTER 2021-12-26 11:48 | Inpatient (IN) | payer BC, MEDICARE ==
[~2021-12-26] VITALS: Ht 162.6 cm; Wt 98.6 kg
[2021-12-26 12:52] LABS: BASOPHILS # (AUTO) 0.1 X10'3 (0-0.2); EOSINOPHILS # (AUTO) 0.1 X10'3 (0-0.9); EOSINOPHILS % (AUTO) 1.5 % (0-6); HEMATOCRIT 22.8 % (35.0-45.0); HEMOGLOBIN 7.4 g/dl (12.0-16.0); LYMPHOCYTES # (AUTO) 0.8 X10'3 (1.1-4.8); LYMPHOCYTES % (AUTO) 11.1 % (21-51); MEAN CORPUSCULAR HEMOGLOBIN 27.8 PG (27.0-31.0); MEAN CORPUSCULAR HGB CONC 32.5 g/dL (33.0-36.5); MEAN CORPUSCULAR VOLUME 85.7 FL (78-98); MEAN PLATELET VOLUME 7.2 FL (7.4-10.4); MONOCYTES # (AUTO) 0.7 X10'3 (0-0.9); MONOCYTES % (AUTO) 9.4 % (2-12); NEUTROPHILS # (AUTO) 5.5 X10'3 (1.8-7.7); PLATELET COUNT 224 X10'3 (140-440); RED BLOOD COUNT 2.67 X10'6 (4.20-5.60); RED CELL DISTRIBUTION WIDTH 15.3 % (11.5-14.5); WHITE BLOOD COUNT 7.1 X10'3 (4.5-11.0)
[2021-12-26 13:02] LABS: ALANINE AMINOTRANSFERASE 52 U/L (12-78); ALBUMIN 3.4 G/DL (3.4-5.0); ALKALINE PHOSPHATASE 67 IU/L (46-116); ANION GAP 7 (8-16); ASPARTATE AMINO TRANSFERASE 59 U/L (10-37); BILIRUBIN,TOTAL 0.4 MG/DL (0.1-1.0); BLOOD UREA NITROGEN 15 MG/DL (7-18); BUN/CREATININE RATIO 19.7 (6.6-38.0); CALCIUM 9.1 MG/DL (8.5-10.1); CHLORIDE 102 MMOL/L (99-107); CREATININE 0.76 MG/DL (0.40-0.90); GLUCOSE 117 MG/DL (70-104); POTASSIUM 3.2 MMOL/L (3.5-5.1); SODIUM 135 MMOL/L (135-145); TOTAL CARBON DIOXIDE 26.1 MMOL/L (24-32); TOTAL PROTEIN 6.7 G/DL (6.4-8.2); eGFR 76 ML/MIN
[2021-12-26 22:10] LABS: D-DIMER 0.36 MG/L FEU (0-0.50)
[2021-12-26 22:27] LABS: APTT 23 SECONDS (22-32)
[2021-12-26] MEDS ORDERED: ondansetron/PF 4mg/2ml inj IV PRN (22:30)
[2021-12-26] MEDS ORDERED: normal saline 1000ml 1,000 ML IV SCH (22:30)
[2021-12-26] MEDS ORDERED: potassium Cl 20 mEq SR tablet PO PRN ×2 (22:30)
[2021-12-26] MEDS ORDERED: magnesium hydroxide 30ml (MOM) UD suspension PO PRN (22:30)
[2021-12-26] MEDS ORDERED: potassium Cl 40MEQ/1/2NS 520ml 520 ML IV PRN (22:30)
[2021-12-26] MEDS ORDERED: diphenhydrAMINE 50 mg/ml inj IV PRN (22:30)
[2021-12-26] MEDS ORDERED: ondansetron 4mg rapidly disintigrating tab PO PRN (22:30)
[2021-12-26] MEDS ORDERED: mag hydrox/Alum hydrox/simeth 30ml oral suspension PO PRN (22:30)
[2021-12-26] MEDS ORDERED: acetaminophen 650mg rectal suppository RC PRN (22:30)
[2021-12-26] MEDS ORDERED: bisacodyl 10mg suppository rectal RC PRN (22:30)
[2021-12-26] MEDS ORDERED: diphenhydrAMINE 25mg capsule PO PRN (22:30)
[2021-12-26] MEDS ORDERED: acetaminophen 325mg tablet PO PRN ×2 (22:30)
[2021-12-26] MEDS ORDERED: pantoprazole 40mg IV 80 MG in normal saline 100ml IV soln 100 ML IV ONE (22:45)
[2021-12-26] MEDS ORDERED: octreotide 100mcg/1 ml ampule IV ONE (22:45)
[2021-12-26] MEDS ORDERED: CefTRIAXone/D5W-Rocephin 1gm 50 ML IV ONE (22:45)
[2021-12-26 22:57] LABS: CREATINE KINASE 69 U/L (26-192); LIPASE 189 U/L (73-393); MAGNESIUM 1.7 MG/DL (1.5-2.4); PHOSPHORUS 3.9 MG/DL (2.3-4.5)
[2021-12-26 23:38] VITALS: BP 136/72
[2021-12-26 23:59] VITALS: BP 141/78
[2021-12-27] VITALS (11 sets, daily range): BP systolic 119–153; BP diastolic 56–81
[2021-12-27] MEDS ORDERED: LOSA100T57 PO (03:27)
[2021-12-27] MEDS ORDERED: FURO20TA4 PO (03:30)
[2021-12-27] MEDS ORDERED: TICA90TA2 PO (03:36)
[2021-12-27] MEDS: octreotide inj. 500 MCG in normal saline 100ml IV soln 97.5 ML IV SCH ×2 (04:09→17:46)
[2021-12-27] MEDS: pantoprazole 40MG/NS 100ML BAG 100 ML IV SCH ×4 (04:09→16:00)
[2021-12-27] MEDS: K and/or MAG REPLACEMENT MC SCH ×2 (08:00→20:05)
--- NOTE | 2021-12-27 08:00 | NUR ---
Patient in room U 3015. I have received report from Minna URIAS and had the opportunity to ask questions and assume patient care. Addendum: 12/27/21 at 1032 by Lorena Moore RN Amended: Links added.
[2021-12-27 08:14] LABS: BASOPHILS # (AUTO) 0.1 X10'3 (0-0.2); BASOPHILS % (AUTO) 1.3 % (0-1); EOSINOPHILS # (AUTO) 0.3 X10'3 (0-0.9); HEMOGLOBIN 8.3 g/dl (12.0-16.0); LYMPHOCYTES # (AUTO) 0.9 X10'3 (1.1-4.8); MONOCYTES # (AUTO) 0.7 X10'3 (0-0.9); WHITE BLOOD COUNT 6.3 X10'3 (4.5-11.0)
[2021-12-27 08:16] LABS: EOSINOPHILS % (AUTO) 4.5 % (0-6); HEMATOCRIT 25.2 % (35.0-45.0); LYMPHOCYTES % (AUTO) 14.6 % (21-51); MEAN CORPUSCULAR HEMOGLOBIN 28.1 PG (27.0-31.0); MEAN CORPUSCULAR HGB CONC 32.7 g/dL (33.0-36.5); MEAN CORPUSCULAR VOLUME 85.8 FL (78-98); MONOCYTES % (AUTO) 11.9 % (2-12); NEUTROPHILS # (AUTO) 4.3 X10'3 (1.8-7.7); NEUTROPHILS % (AUTO) 67.7 % (42-75); PLATELET COUNT 212 X10'3 (140-440); RED BLOOD COUNT 2.94 X10'6 (4.20-5.60); RED CELL DISTRIBUTION WIDTH 15.7 % (11.5-14.5)
[2021-12-27 08:23] LABS: ALANINE AMINOTRANSFERASE 52 U/L (12-78); ALBUMIN 3.3 G/DL (3.4-5.0); ALKALINE PHOSPHATASE 69 IU/L (46-116); ANION GAP 9 (8-16); ASPARTATE AMINO TRANSFERASE 53 U/L (10-37); BILIRUBIN,TOTAL 0.8 MG/DL (0.1-1.0); BLOOD UREA NITROGEN 14 MG/DL (7-18); BUN/CREATININE RATIO 19.2 (6.6-38.0); CHLORIDE 104 MMOL/L (99-107); CREATININE 0.73 MG/DL (0.40-0.90); GLUCOSE 91 MG/DL (70-104); SODIUM 138 MMOL/L (135-145); TOTAL CARBON DIOXIDE 25.4 MMOL/L (24-32); TOTAL PROTEIN 6.5 G/DL (6.4-8.2); eGFR 79 ML/MIN
[2021-12-27] MEDS ORDERED: losartan 50mg tablet PO SCH ×2 (08:34→20:00)
--- NOTE | 2021-12-27 10:26 | NUR ---
Pt down to GI lab. Took wallet and phone with her. Wants to keep items with her. Declines safe downstairs. does not want me to catalog contents of wallet.
[2021-12-27] MEDS ORDERED: MIDAZolam 1 MG/ML 5ML VIAL ONE (10:31)
[2021-12-27] MEDS ORDERED: FENTANYL CITRATE/PF 50 MCG/1 ML VIAL ONE (10:31)
[2021-12-27] MEDS ORDERED: LIDOcaine Viscous 15ml cup ONE (10:31)
--- NOTE | 2021-12-27 12:45 | NUR ---
Pt back to room from [facility]. Phone and wallet with PT. Call light in reach.
[2021-12-27] MEDS: docusate sod 100mg capsule PO SCH ×2 (13:00→19:48)
--- NOTE | 2021-12-27 15:25 | NUR ---
PAGER ID: [phone] MESSAGE: [id number] Clare. She takes her Cozzar at night. Can I change the time. Lorena luu
--- NOTE | 2021-12-27 16:20 | NUR ---
Pharmacy contacted regarding Sandostatin Gtt. Original order states one bag. On emar as continuous. Await clarification. Sandostatin remains off at this time.
--- NOTE | 2021-12-27 18:33 | NUR ---
Problems reprioritized. Patient report given, questions answered & plan of care reviewed with Raymundo URIAS. Pt denies needs,Call light in reach. Addendum: 12/27/21 at 1835 by Lorena Moore RN Amended: Links added.
[2021-12-27] MEDS: ticagrelor 90mg tablet PO SCH (19:58)
[2021-12-27] MEDS ORDERED: ROSUVASTATIN CALCIUM 5 MG TABLET PO SCH ×3 (21:00→21:33)
[2021-12-27] MEDS ORDERED: atorvastatin 20mg tablet PO SCH (21:00)
[2021-12-28 02:44] VITALS: BP 118/52
--- NOTE | 2021-12-28 06:27 | NUR ---
Patient in room U 3015. I have received report from Raymundo URIAS and had the opportunity to ask questions and assume patient care. Pt sleeping, call light in reach Addendum: 12/28/21 at 0629 by Lorena Moore RN Amended: Links added.
[2021-12-28 06:52] VITALS: BP 105/45
[2021-12-28 07:26] LABS: ALANINE AMINOTRANSFERASE 39 U/L (12-78); ALBUMIN 2.9 G/DL (3.4-5.0); ALKALINE PHOSPHATASE 63 IU/L (46-116); ANION GAP 6 (8-16); ASPARTATE AMINO TRANSFERASE 34 U/L (10-37); BILIRUBIN,TOTAL 0.5 MG/DL (0.1-1.0); BLOOD UREA NITROGEN 10 MG/DL (7-18); BUN/CREATININE RATIO 14.7 (6.6-38.0); CALCIUM 8.6 MG/DL (8.5-10.1); CHLORIDE 107 MMOL/L (99-107); CREATININE 0.68 MG/DL (0.40-0.90); GLUCOSE 92 MG/DL (70-104); MAGNESIUM 1.9 MG/DL (1.5-2.4); POTASSIUM 3.5 MMOL/L (3.5-5.1); SODIUM 140 MMOL/L (135-145); TOTAL CARBON DIOXIDE 26.9 MMOL/L (24-32); TOTAL PROTEIN 5.9 G/DL (6.4-8.2); eGFR 86 ML/MIN
[2021-12-28] MEDS: ticagrelor 90mg tablet PO SCH (07:37)
[2021-12-28] MEDS: docusate sod 100mg capsule PO SCH (07:37)
[2021-12-28 07:45] LABS: BASOPHILS # (AUTO) 0.1 X10'3 (0-0.2); BASOPHILS % (AUTO) 1.2 % (0-1); EOSINOPHILS # (AUTO) 0.3 X10'3 (0-0.9); EOSINOPHILS % (AUTO) 4.6 % (0-6); HEMATOCRIT 22.5 % (35.0-45.0); HEMOGLOBIN 7.5 g/dl (12.0-16.0); LYMPHOCYTES % (AUTO) 16.2 % (21-51); MEAN CORPUSCULAR HEMOGLOBIN 28.4 PG (27.0-31.0); MEAN CORPUSCULAR HGB CONC 33.4 g/dL (33.0-36.5); MONOCYTES # (AUTO) 0.8 X10'3 (0-0.9); MONOCYTES % (AUTO) 12.7 % (2-12); NEUTROPHILS # (AUTO) 3.9 X10'3 (1.8-7.7); NEUTROPHILS % (AUTO) 65.3 % (42-75); PLATELET COUNT 215 X10'3 (140-440); RED BLOOD COUNT 2.64 X10'6 (4.20-5.60); RED CELL DISTRIBUTION WIDTH 15.4 % (11.5-14.5); WHITE BLOOD COUNT 5.9 X10'3 (4.5-11.0)
[2021-12-28] MEDS ORDERED: potassium Cl 20 mEq SR tablet PO SCH (08:00)
[2021-12-28] MEDS: K and/or MAG REPLACEMENT MC SCH (08:00)
[2021-12-28] MEDS ORDERED: pantoprazole 40MG/NS 100ML BAG 100 ML IV SCH (08:00)
[2021-12-28] MEDS ORDERED: ascorbic acid 500mg tablet PO SCH (08:00)
[2021-12-28] MEDS ORDERED: aspirin 81mg, enteric-coated 1 TAB TABLET.DR PO SCH (08:00)
[2021-12-28] MEDS ORDERED: non-formulary drug (Ubidecarenone (Coq-10) 30 MG) PO SCH (08:00)
[2021-12-28] MEDS ORDERED: PANT-47 PO (10:29)
[2021-12-28 11:59] VITALS: BP 114/54
--- NOTE | 2021-12-28 14:51 | NUR ---
All written and verbal orders for d/c given. all questions answered. Pt stated she had all belongings including wallet, cell phone and grinder machine setter. pt left hospital via W/C. she requested to wait outside for turkey picker by sister. Addendum: 12/28/21 at 1453 by Lorena Moore RN Amended: Links added.
[2021-12-29] MEDS ORDERED: magnesium oxide 400mg tablet PO SCH (08:00)
[2021-12-29] MEDS ORDERED: calcium carbonate 500mg tablet PO SCH (08:00)
[2021-12-29] MEDS ORDERED: ferrous sulfate 325mg tablet PO SCH (08:00)
== END 2021-12-28 14:54 | disposition home or self-care (01) | DRG 377 ==
LOC: ER 11:49 → ED HOLD 22:32 → PCU 3S 12-27 08:02
PROVIDERS: ADMIT Family Medicine; ATTEND Internal Medicine
PROC: 30233N1 Transfusion of Nonautologous Red Blood Cells into Peripheral Vein, Percutaneous Approach (ICD-10-PCS; 2021-12-26)
PROC: 0DB78ZX Excision of Stomach, Pylorus, Via Natural or Artificial Opening Endoscopic, Diagnostic (ICD-10-PCS; principal; 2021-12-27)
DX: K27.4 Chronic or unspecified peptic ulcer, site unspecified, with hemorrhage (principal); I21.A1 Myocardial infarction type 2; I50.32 Chronic diastolic (congestive) heart failure; D62 Acute posthemorrhagic anemia; K26.4 Chronic or unspecified duodenal ulcer with hemorrhage; E78.5 Hyperlipidemia, unspecified; K21.9 Gastro-esophageal reflux disease without esophagitis; E87.6 Hypokalemia; I11.0 Hypertensive heart disease with heart failure; I25.10 Atherosclerotic heart disease of native coronary artery without angina pectoris; K29.70 Gastritis, unspecified, without bleeding; I35.0 Nonrheumatic aortic (valve) stenosis; T39.015A Adverse effect of aspirin, initial encounter; Z79.02 Long term (current) use of antithrombotics/antiplatelets; Z79.899 Other long term (current) drug therapy; Z86.73 Personal history of transient ischemic attack (TIA), and cerebral infarction without residual deficits; Z95.2 Presence of prosthetic heart valve; Y92.89 Other specified places as the place of occurrence of the external cause; Z88.5 Allergy status to narcotic agent; Z88.8 Allergy status to other drugs, medicaments and biological substances; Z79.82 Long term (current) use of aspirin
CPT/HCPCS: 36415; 36430; 43239; 71045; 80053; 82550; 83690; 83735; 83880; 84100; 84484; 85025; 85379; 85610; 85730; 86885; 86900; 86901; 86920; 99152; 99285; A4620; C9113; G0378; J0696; J2250; J2354; J3010; J3490; J7030; J7040; P9016

== ENCOUNTER 2023-12-27 08:10 | Inpatient (IN) | payer BC, MEDICARE ==
[~2023-12-27] VITALS: Ht 160 cm; Wt 97.0 kg
[~2023-12-27 08:10] MED LIST changes: -ASPI-611 PO; +LOSA100T58 PO; +PANT-47 PO; -ROSU20TA31 PO; +ROSU20TA98 PO; -TICA90TA PO; +TICA90TA2 PO
[2023-12-27 08:13] VITALS: TEMP 97.9
[2023-12-27 08:59] VITALS: BP 129/85; PULSE 105; RESP 16; O2SAT 94
[2023-12-27 09:14] LABS: BASOPHILS # (AUTO) 0.1 X10'3 (0-0.2); BASOPHILS % (AUTO) 1.1 % (0-1); EOSINOPHILS # (AUTO) 0.1 X10'3 (0-0.9); EOSINOPHILS % (AUTO) 1.4 % (0-6); HEMATOCRIT 42.7 % (35.0-45.0); HEMOGLOBIN 13.6 g/dl (12.0-16.0); LYMPHOCYTES # (AUTO) 0.9 X10'3 (1.1-4.8); LYMPHOCYTES % (AUTO) 12.9 % (21-51); MEAN CORPUSCULAR HEMOGLOBIN 27.8 PG (27.0-31.0); MEAN CORPUSCULAR HGB CONC 31.8 g/dL (33.0-36.5); MEAN CORPUSCULAR VOLUME 87.3 FL (78-98); MEAN PLATELET VOLUME 6.5 FL (7.4-10.4); MONOCYTES # (AUTO) 0.5 X10'3 (0-0.9); MONOCYTES % (AUTO) 7.1 % (2-12); NEUTROPHILS # (AUTO) 5.6 X10'3 (1.8-7.7); NEUTROPHILS % (AUTO) 77.5 % (42-75); PLATELET COUNT 197 X10'3 (140-440); RED BLOOD COUNT 4.89 X10'6 (4.20-5.60); WHITE BLOOD COUNT 7.2 X10'3 (4.5-11.0)
[2023-12-27 09:21] LABS: ALBUMIN 3.7 G/DL (3.4-5.0); ANION GAP 11 (8-16); BLOOD UREA NITROGEN 12 MG/DL (7-18); BUN/CREATININE RATIO 14.1 (10.0-20.0); CALCIUM 9.5 MG/DL (8.5-10.1); CHLORIDE 105 MMOL/L (99-107); CREATININE 0.85 MG/DL (0.40-0.90); GLUCOSE 88 MG/DL (70-104); POTASSIUM 3.8 MMOL/L (3.5-5.1); SODIUM 142 MMOL/L (135-145); TOTAL CARBON DIOXIDE 26.2 MMOL/L (24-32); eCRCL 51 ML/MIN; eGFR 66 ML/MIN
[2023-12-27] MEDS ORDERED: magnesium sulf-water 4G/100mL 100 ML IV PRN (10:45)
[2023-12-27] MEDS ORDERED: potassium Cl 20 mEq SR tablet PO PRN ×2 (10:45)
[2023-12-27] MEDS ORDERED: mag hydrox/Alum hydrox/simeth 30ml oral suspension PO PRN (10:45)
[2023-12-27] MEDS ORDERED: morphine 2 MG/ML inj. syringe IV PRN ×2 (10:45)
[2023-12-27] MEDS ORDERED: potassium Cl 40MEQ/1/2NS 520ml 520 ML IV PRN (10:45)
[2023-12-27] MEDS ORDERED: acetaminophen 325mg tablet PO PRN (10:45)
[2023-12-27] MEDS ORDERED: magnesium sulf-water 2g/50mL 50 ML IV PRN (10:45)
[2023-12-27] MEDS ORDERED: magnesium hydroxide 30ml (MOM) UD suspension PO PRN (10:45)
[2023-12-27] MEDS ORDERED: ondansetron/PF 4mg/2ml inj IV PRN (10:45)
[2023-12-27] MEDS ORDERED: aspirin 81mg, enteric-coated 1 TAB TABLET.DR PO SCH (11:00)
[2023-12-27] MEDS ORDERED: atorvastatin 20mg tablet PO SCH (11:00)
[2023-12-27] MEDS: atorvastatin 20mg tablet PO SCH (12:12)
[2023-12-27] MEDS: aspirin 81mg, enteric-coated 1 TAB TABLET.DR PO SCH (12:12)
[2023-12-27] MEDS ORDERED: heparin, porcine 5000 units/ml vial SQ SCH (20:00)
[2023-12-27] MEDS ORDERED: K and/or MAG REPLACEMENT MC SCH (20:00)
[2023-12-27] MEDS ORDERED: docusate sod 100mg capsule PO SCH (20:00)
== END 2023-12-27 19:16 | disposition left against medical advice (07) | DRG 281 ==
LOC: ER 08:11 → ED HOLD 10:45
PROVIDERS: ADMIT Nurse Practitioner Family; ATTEND Nurse Practitioner Family
DX: I21.4 Non-ST elevation (NSTEMI) myocardial infarction (principal); H34.11 Central retinal artery occlusion, right eye; H54.61 Unqualified visual loss, right eye, normal vision left eye; I10 Essential (primary) hypertension; Z53.29 Procedure and treatment not carried out because of patient's decision for other reasons; R00.0 Tachycardia, unspecified; Z86.73 Personal history of transient ischemic attack (TIA), and cerebral infarction without residual deficits; Z88.1 Allergy status to other antibiotic agents; Z88.5 Allergy status to narcotic agent; Z95.5 Presence of coronary angioplasty implant and graft; I25.2 Old myocardial infarction; Z88.8 Allergy status to other drugs, medicaments and biological substances
CPT/HCPCS: 36415; 70450; 70553; 71045; 80048; 84484; 85025; 93005; 99285; G0378